=== PATIENT | male | born 1980 | race Caucasian/White ===

== ENCOUNTER 2021-02-09 18:23 | Emergency (ER) | payer OTHER, SELFPAY ==
[2021-02-09 18:36] VITALS: BP 158/105; PULSE 98; RESP 18; TEMP 36.8; O2SAT 97; BMI 34.9
--- NOTE | 2021-02-09 18:54 | ECG_ITS ---
Test Date: 2021-02-09 Pat Name: Luis Guajardo Department: Room: Gender: Male Rn First Assistant: : 1980 Requested By: Ana Hernandez I Order Number: [id number] Concepción MD: Adalberto Teran M.D. Measurements Intervals Protivin Rate: 92 P: 52 LA: 149 QRS: 14 QRSD: 87 T: 38 QT: 335 QTc: 416 Interpretive Statements SINUS RHYTHM POSSIBLE LEFT ATRIAL ENLARGEMENT [-0.1mV P WAVE IN V1/V2] No previous ECG available for comparison Electronically Signed On 02-09-2021 19:11:37 CDT by Adalberto Teran M.D. [email or web address] [email or web address] memorial hospitalFioscleveland clinic akron generalAirbiquity/store/NU/[id number] f
--- NOTE | 2021-02-09 18:55 | ED_ITS ---
HPI - Neuro Symptoms/Deficit General: Chief Complaint: Neuro Symptoms/Deficit Stated Complaint: headache, numbness in left side of body Time Seen by Provider: 02/09/21 18:46 Source: patient Mode of arrival: ambulatory Limitations: no limitations History of Present Illness: HPI Narrative: This patient is a 40-year-old male with a history of hypertension who presents to the emergency department with left-sided headache. He has associated right upper extremity tingling and weakness. Symptoms started about 4:30 PM this afternoon. The weakness and headache gradually got worse and so he decided to come into the emergency department to be evaluated. He had similar symptoms 2 days ago and to a lesser extent yesterday. He does not have a history of migraines. He thinks he may have a little bit of weakness in the right lower extremity. No visual changes. He however has photosensitivity. Onset (ago): hour(s) (3) Last Observed Normal: 16:00 Timing confirmed by: other (friend) Location: right arm History of same: No Severity: moderate Quality: weak and tingling Relieving factors: none Exacerbating factors: none Context: sudden onset On Anticoagulants: No Associated symptoms: Reports headache(s), malaise and tingling; Deny chest pain, cough, diaphoresis, fevers/chills, anorexia, nausea, seizures, short of breath, syncope, vertigo, vomiting or weakness Review of Systems General: Reports: 10 or more systems reviewed and unremarkable except in HPI and below Const: Reports: malaise; Denies: diaphoresis Card: Denies: chest pain or syncope GI: Denies: nausea or vomiting Neuro: Reports: headache(s); Denies: vertigo NIH stroke score NIHSS: Level Of Consciousness - 1a: 0 Level Of Consciousness Questions - 1b: Both Correct Level Of Consciousness Commands - 1c: Both Correct Best Gaze - 2: Normal Visual Armstrong - 3: No Visual Loss Facial Palsy - 4: Normal Motor Arm Right - 5: No Drift Motor Arm Left - 5: No Drift Motor Leg Right - 6: No Drift Motor Leg Left - 6: No Drift Limb Ataxia - 7: Present In One Limb Sensory - 8: Mild To Moderate Loss Best Language - 9: No Aphasia Dysarthia - 10: Normal Extinction And Inattention - 11: 0 Score: Total Score: 2 Physical Exam Const: COMMON NORMALS: no acute distress, average body habitus, patient oriented x3, no limitations, healthy appearing, alert and well nourished HENMT: COMMON NORMALS: normocephalic, atraumatic and moist oral mucous membranes HEAD & SCALP: normocephalic and atraumatic Neck/C-Spine: COMMON NORMALS: no meningeal signs and no JVD Resp: COMMON NORMALS: normal respiratory effort, No retractions, No use of accessory muscles, clear to auscultation bilaterally and percussion normal AUSCULTATION: clear to auscultation bilaterally PERCUSSION: percussion normal Cardio: COMMON NORMALS: no JVD, regular rate, regular rhythm, S1 normal heart sound present, S2 normal heart sound present, No gallops present (Cardio), No clicks present (Cardio), No murmurs present (Cardio), No rub (Cardio) and Peripheral pulses 2+ throughout RATE: regular rate RHYTHM: regular rhythm HEART SOUNDS: S1 normal heart sound present and S2 normal heart sound present PERIPHERAL PULSES: Peripheral pulses 2+ throughout GI: COMMON NORMALS: Normal to inspection, nondistended, normoactive bowel sounds present, Soft to palpation, non-tender, No hepatosplenomegaly present, no masses and no bruits PALPATION: Yes Soft to palpation and Yes No hepatosplenomegaly present Extremity: COMMON NORMALS: normal to inspection, full ROM, capillary refill normal, no calf tenderness and no pedal edema Neuro: COMMON NORMALS: patient oriented x3 SENSORIUM/ORIENTATION: Yes alert MENINGEAL SIGNS: Yes no meningeal signs Skin: COMMON NORMALS: no rashes or lesions noted, no wounds, turgor normal, no jaundice, no petechiae and no mottling GENERAL SKIN EXAM: no rashes or lesions noted and turgor normal Course Consultations: Consultation #1: Discussed the patient with Dr. Morales, neurologist at [facility] in [place]. He did do a telemedicine visit with the patient and after evaluation with the patient and discussed with the patient risks and benefits of TPA discussed with the patient. Also discussed the possibility of this being a complex migraine. After discussion the patient elects to have TPA and be transferred to [place] for further evaluation and management. Time: 19:34 Vital Signs: Vital signs: Vital Signs Temperature 98.2 F 02/09/21 18:36 Pulse Rate 97 02/09/21 22:42 Respiratory Rate 16 02/09/21 22:42 Blood Pressure 138/83 02/09/21 22:42 Pulse Oximetry 93 02/09/21 22:42 MDM - Neuro Symptoms/Deficit MDM Narrative: Medical decision making narrative: This 40-year-old male with a history of hypertension presents to the emergency department with left-sided headache and right-sided upper extremity weakness and some right lower extremity weakness. 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 He was evaluated by the neurologist at [facility] in [place]. After discussion with the patient that he was given TPA and transferred to [facility] for further evaluation and management. Patient remained stable throughout his ED stay. Medical Records: Attestation: I reviewed the patient's medical records. Lab Data: Attestation: I reviewed the patient's lab results. Labs: Lab Results 02/09/21 02/09/21 02/09/21 Range/Units 18:56 19:04 19:04 WBC 14.7 H (4.0-10.0) 10^3/ uL RBC 5.12 (4.1-5.3) 10^6/u L Hgb 15.8 (11.7-16.6) g/dL Hct 46.4 (42.0-52.0) % MCV 90.6 (80-94) fL MCH 30.9 (28.0-34.0) pg MCHC 34.1 (30.0-36.0) g/dL RDW 12.2 (12.1-15.1) % Plt Count 251 (130-400) 10^3/c mm MPV 10.5 H (7.4-10.4) fL Neut % (Auto) 68.1 % Lymph % (Auto) 21.1 % [place] % (Auto) 8.5 % Eos % (Auto) 1.4 % Baso % (Auto) 0.4 % Neut # (Auto) 9.99 H (1.8-7.7) 10^3/u L Lymph # (Auto) 3.1 (0.8-4.8) 10^3/u L [place] # (Auto) 1.2 H (0.2-0.9) 10^3/u L Eos # (Auto) 0.2 (0.0-0.8) 10^3/u L Baso # (Auto) 0.1 (0.0-0.1) 10^3/u L Nucleated RBC % (a uto) 0 % Nucleated RBCs # 0.0 /100WBC PT 13.60 (12.1-14.9) SECO NDS INR 1.01 (0.8-1.2) APTT 30.3 (23.9-36.7) SECO NDS Sodium (136-145) mmol/L Potassium (3.5-5.1) mmol/L Chloride (98-107) mmol/L Carbon Dioxide (22-29) mmol/L Anion Gap (5-19) BUN (6-20) mg/dL Creatinine (0.7-1.2) mg/dL GFR Calculation (90-130) mL/min Glucose (65-115) mg/dL POC Glucose 103 (70-110) mg/dL Calculated Osmolal ity (285-295) mOsm/k g Calcium (8.5-10.5) mg/dL Total Bilirubin (0.15-1.2) mg/dL AST (0-40) U/L ALT (0-41) U/L Alkaline Phosphata se (40-130) IU/L Total Protein (6.6-8.7) g/dL Albumin (3.5-5.2) g/dL Globulin (1.3-4.6) g/dL Urine Color (Yellow) Urine Appearance (CLEAR) Urine pH (5-7) Ur Specific Gravit y (1.005-1.030) Urine Protein (Negative) Urine Glucose (UA) (Normal) Urine Ketones (Negative) Urine Blood (Negative) Urine Nitrate (Negative) Urine Bilirubin (Negative) Urine Urobilinogen (Negative) mg/dL Ur Leukocyte Lisa ase (Negative) Urine Opiates Scre en (Negative) ng/mL Ur Barbiturates Sc reen (Negative) ng/mL Ur Phencyclidine S crn (Negative) ng/mL Ur Amphetamines Sc reen (Negative) ng/mL U Benzodiazepines Scrn (Negative) ng/mL Urine Cocaine Scre en (Negative) ng/mL U Marijuana (THC) Screen (Negative) ng/mL 02/09/21 02/09/21 02/09/21 Range/Units 19:04 21:00 21:00 WBC (4.0-10.0) 10^3/ uL RBC (4.1-5.3) 10^6/u L Hgb (11.7-16.6) g/dL Hct (42.0-52.0) % MCV (80-94) fL MCH (28.0-34.0) pg MCHC (30.0-36.0) g/dL RDW (12.1-15.1) % Plt Count (130-400) 10^3/c mm MPV (7.4-10.4) fL Neut % (Auto) % Lymph % (Auto) % [place] % (Auto) % Eos % (Auto) % Baso % (Auto) % Neut # (Auto) (1.8-7.7) 10^3/u L Lymph # (Auto) (0.8-4.8) 10^3/u L [place] # (Auto) (0.2-0.9) 10^3/u L Eos # (Auto) (0.0-0.8) 10^3/u L Baso # (Auto) (0.0-0.1) 10^3/u L Nucleated RBC % (a uto) % Nucleated RBCs # /100WBC PT (12.1-14.9) SECO NDS INR (0.8-1.2) APTT (23.9-36.7) SECO NDS Sodium 136 (136-145) mmol/L Potassium 3.9 (3.5-5.1) mmol/L Chloride 100 (98-107) mmol/L Carbon Dioxide 28 (22-29) mmol/L Anion Gap 11.9 (5-19) BUN 17 (6-20) mg/dL Creatinine 1.0 (0.7-1.2) mg/dL GFR Calculation 81.9 L (90-130) mL/min Glucose 110 (65-115) mg/dL POC Glucose (70-110) mg/dL Calculated Osmolal ity 284 L (285-295) mOsm/k g Calcium 8.8 (8.5-10.5) mg/dL Total Bilirubin 0.6 (0.15-1.2) mg/dL AST 23 (0-40) U/L ALT 45 H (0-41) U/L Alkaline Phosphata se 87 (40-130) IU/L Total Protein 7.1 (6.6-8.7) g/dL Albumin 4.4 (3.5-5.2) g/dL Globulin 2.7 (1.3-4.6) g/dL Urine Color Straw (Yellow) Urine Appearance Clear (CLEAR) Urine pH 7 (5-7) Ur Specific Gravit y 1.005 (1.005-1.030) Urine Protein Neg (Negative) Urine Glucose (UA) Norm (Normal) Urine Ketones Negative (Negative) Urine Blood Neg (Negative) Urine Nitrate Negative (Negative) Urine Bilirubin Neg (Negative) Urine Urobilinogen Norm (Negative) mg/dL Ur Leukocyte Lisa ase Negative (Negative) Urine Opiates Scre en Negative (Negative) ng/mL Ur Barbiturates Sc reen Negative (Negative) ng/mL Ur Phencyclidine S crn Negative (Negative) ng/mL Ur Amphetamines Sc reen Negative (Negative) ng/mL U Benzodiazepines Scrn Negative (Negative) ng/mL Urine Cocaine Scre en Negative (Negative) ng/mL U Marijuana (THC) Screen Negative (Negative) ng/mL Imaging Data^: CT Head: Attestation: I personally reviewed and interpreted this imaging study as carlito antonio: Radiologist's impression: [address] [id number] Scan ReportSigned Patient: Norah Guajardo #: [id number]: 1980Acct#:[id number]/Sex: 40 / MADM Date: 02/09/21Loc: ERRoom/Bed:Attending Dr: Ordering Provider/Ordering MD: Ana Hernandez MD, [facility] [place] Date of Service: 02/09/21 Procedure(s): CT head wo con* [id number] Accession Number(s): [id number] Report Number: [id number] PROCEDURE INFORMATION: Exam: CT Head Without Contrast Exam date and time: 02/09/2021 6:54 PM Age: 40 years old Clinical indication: Pain; Headache; Additional info: Symptoms of acute stroke TECHNIQUE: Imaging protocol: Computed tomography of the head without contrast. Radiation optimization: All CT scans at this facility use at least one of these dose optimization techniques: automated exposure control; mA and/or kV adjustment per patient size (includes targeted exams where dose is matched to clinical indication); or iterative reconstruction. Other technique: STROKE PROTOCOL was implemented. COMPARISON: No relevant prior studies available. RADIATION DOSE METRICS: Total DLP (mGy-cm): 931.92 FINDINGS: Brain: Normal. No hemorrhage or evidence of acute infarction is seen. No mass effect. Cerebral ventricles: No ventriculomegaly. Paranasal sinuses: Visualized sinuses are unremarkable. No fluid levels. Mastoid air cells: Visualized mastoid air cells are well aerated. Bones/joints: Unremarkable. No acute fracture. Soft tissues: Unremarkable. CT/CT head wo con* [id number] IMPRESSION: No acute intracranial abnormality. ASSESSMENT: ASPECTS ([place] Stroke Program Early CT Score) is 10. Radiation Dose CTDIVOL = (mGy): DLP = 931.92 (mGy-cm) Dictated By:Shai Dhillon MDSigned By:Shai Dhillon MDSigned Date/Time:02/09/214DD/ [address]: Attestation: I personally reviewed and interpreted this imaging study as follows: Radiologist's impression: [address] [id number] Scan ReportSigned Patient: Norah Guajardo #: [id number]: 1980Acct#:[id number]/Sex: 40 / MADM Date: 02/09/21Loc: ERRoom/Bed:Attending Dr: Ordering Provider/Ordering MD: Ana Hernandez MD, [facility] [place] Date of Service: 02/09/21 Procedure(s): CT angio headneck* [id number] Accession Number(s): [id number] Report Number: [id number] PROCEDURE INFORMATION: Exam: CT Angiography Head With Contrast, Arteriography Exam date and time: 02/09/2021 6:54 PM Age: 40 years old Clinical indication: Patient HX: Numbness left side of body; Additional info: Neuro symptoms. TECHNIQUE: Imaging protocol: Computed tomography angiography of the head with contrast. Exam focused on the arteries. 3D rendering (Not supervised by radiologist): MIP and/or 3D reconstructed images were created by the technologist. Radiation optimization: All CT scans at this facility use at least one of these dose optimization techniques: automated exposure control; mA and/or kV adjustment per patient size (includes targeted exams where dose is matched to clinical indication); or iterative reconstruction. Contrast material: OMNI 350; Contrast volume: 95 ml; Contrast route: INTRAVENOUS (IV); COMPARISON: No relevant prior studies available. RADIATION DOSE METRICS: Total DLP (mGy-cm): 2603.11 FINDINGS: ANTERIOR CIRCULATION: Right internal carotid artery: Unremarkable. Intracranial segment is patent with no significant stenosis. No aneurysm. Right middle cerebral artery: Unremarkable. No occlusion or significant stenosis. No aneurysm. Right anterior cerebral artery: Unremarkable. No occlusion or significant stenosis. No aneurysm. Left internal carotid artery: Unremarkable. Intracranial segment is patent with no significant stenosis. No aneurysm. Left middle cerebral artery: Unremarkable. No occlusion or significant stenosis. No aneurysm. Left anterior cerebral artery: Unremarkable. No occlusion or significant stenosis. No aneurysm. POSTERIOR CIRCULATION: Right vertebral artery: Unremarkable. No occlusion or significant stenosis. No aneurysm. Left vertebral artery: Unremarkable. No occlusion or significant stenosis. No aneurysm. Basilar artery: Unremarkable. No occlusion or significant stenosis. No aneurysm. Right posterior cerebral artery: Unremarkable. No occlusion or significant stenosis. No aneurysm. Left posterior cerebral artery: Unremarkable. No occlusion or significant stenosis. No aneurysm. IMPRESSION: Patent intracranial arteries. PROCEDURE INFORMATION: Exam: CT Angiography Neck With Contrast Exam date and time: 02/09/2021 6:54 PM Age: 40 years old Clinical indication: Patient HX: Numbness left side of body; Additional info: Neuro symptoms. TECHNIQUE: Imaging protocol: Computed tomography angiography of the neck with contrast. 3D rendering (Not supervised by radiologist): MIP and/or 3D reconstructed images were created by the technologist. Radiation optimization: All CT scans at this facility use at least one of these dose optimization techniques: automated exposure control; mA and/or kV adjustment per patient size (includes targeted exams where dose is matched to clinical indication); or iterative reconstruction. Contrast material: OMNI 350; Contrast volume: 95 ml; Contrast route: INTRAVENOUS (IV); COMPARISON: No relevant prior studies available. RADIATION DOSE METRICS: Total DLP (mGy-cm): 2603.11 FINDINGS: Right common carotid artery: No stenosis. No dissection or occlusion. Right internal carotid artery: No stenosis of the extracranial segment. No dissection or occlusion. Right external carotid artery: No occlusion or stenosis of the origin. Left common carotid artery: No stenosis. No dissection or occlusion. Left internal carotid artery: No stenosis of the extracranial segment. No dissection or occlusion. Left external carotid artery: No occlusion or stenosis of the origin. Right vertebral artery: No stenosis. No dissection or occlusion. Left vertebral artery: No stenosis. No dissection or occlusion. Soft tissues: Normal. No significant soft tissue swelling. Bones/joints: No acute fracture. CT/CT angio headneck* [id number] IMPRESSION: Patent neck carotid and vertebral arteries. REFERENCES: NASCET CRITERIA. The degree of internal carotid artery stenosis is based on NASCET criteria. Normal is no stenosis. Mild is less than 50% stenosis. Moderate is 50-69% stenosis. Severe is 70% to 99% stenosis. Total occlusion is no detectable patent lumen. Radiation Dose CTDIVOL = (mGy): DLP = 2603.11~2603.11 (mGy-cm) Dictated By:Shai Dhillon MDSigned By:Shai Dhillon MDSigned Date/Time:02/09/211927DD/ 25 EKG Data^: EKG 1: Attestation: I personally reviewed and interpreted this EKG as follows: EKG interpretation date: 02/09/21 EKG interpretation time: 18:59 Prior EKG tracings: not available for review Interpretation: Sinus rhythm. Heart rate 92 bpm. Normal axis. No ST changes. Critical Care Time Critical Care Time: Critical Care Time: Yes Total Critical Care Time: 60 Attestation: This case had a high probability of a clinically significant, sudden, or life threatening deterioration of this patient's condition which required my full and direct attention, intervention and personal management. Discharge Plan Discharge Patient Disposition: Xfer Short-Term Hosp Clinical Impression: Cerebrovascular accident Qualifiers: CVA mechanism: unspecified Qualified Code(s): I63.9 - Cerebral infarction, unspecified Discharge Orders: Transfer Out of Facility (Order); Ordered 02/09/21 Ordered By: Ana Hernandez Coding Level of Care Code ED Front Worker for Chg Fwd
[2021-02-09 19:01] LABS: Glucose Point of Care 103 mg/dL (70-110)
[2021-02-09 19:11] LABS: Basophils # 0.1 10^3/uL (0.0-0.1); Basophils % 0.4 %; Eosinophils # 0.2 10^3/uL (0.0-0.8); Eosinophils % 1.4 %; Hematocrit 46.4 % (42.0-52.0); Hemoglobin 15.8 g/dL (11.7-16.6); Lymphocytes # 3.1 10^3/uL (0.8-4.8); Lymphocytes % 21.1 %; Mean Corpuscular HGB Conc 34.1 g/dL (30.0-36.0); Mean Corpuscular Hemoglobin 30.9 pg (28.0-34.0); Mean Corpuscular Volume 90.6 fL (80-94); Mean Platelet Volume 10.5 fL (7.4-10.4); Monocytes # 1.2 10^3/uL (0.2-0.9); Monocytes % 8.5 %; Neutrophils # 9.99 10^3/uL (1.8-7.7); Neutrophils % 68.1 %; Nucleated Red Blood Cells % 0 %; Platelet Count 251 10^3/cmm (130-400); Red Blood Count 5.12 10^6/uL (4.1-5.3); Red Cell Distribution Width 12.2 % (12.1-15.1); White Blood Count 14.7 10^3/uL (4.0-10.0)
[2021-02-09] MEDS: iohexol 350 mg/mL 100 mL Btl IV (19:13)
[2021-02-09 19:23] LABS: INR 1.01 (0.8-1.2)
[2021-02-09 19:24] LABS: Partial Thromboplastin Time 30.3 SECONDS (23.9-36.7)
[2021-02-09 19:26] LABS: Alanine Aminotransferase 45 U/L (0-41); Albumin Level 4.4 g/dL (3.5-5.2); Alkaline Phosphatase 87 IU/L (40-130); Anion Gap 11.9 (5-19); Aspartate Amino Transferase 23 U/L (0-40); Blood Urea Nitrogen 17 mg/dL (6-20); Calcium 8.8 mg/dL (8.5-10.5); Carbon Dioxide 28 mmol/L (22-29); Chloride 100 mmol/L (98-107); Globulin 2.7 g/dL (1.3-4.6); Glomerular Filtration Rate 81.9 mL/min (90-130); Glucose 110 mg/dL (65-115); Osmolality Calculated 284 mOsm/kg (285-295); Potassium 3.9 mmol/L (3.5-5.1); Sodium 136 mmol/L (136-145); Total Bilirubin 0.6 mg/dL (0.15-1.2); Total Protein 7.1 g/dL (6.6-8.7)
[2021-02-09 19:37] VITALS: BP 163/117; PULSE 107; RESP 27; O2SAT 98
[2021-02-09] MEDS: labetalol 5 mg/mL SDV 20mL 10 MG IVP (20:19)
[2021-02-09 20:23] VITALS: BP 134/92; PULSE 102; RESP 20; O2SAT 96
[2021-02-09 20:58] VITALS: BP 124/91; PULSE 96; RESP 18; O2SAT 95
[2021-02-09 21:09] LABS: Add Urine Microscopic? NO; Charge for UA Resulting for Rev
[2021-02-09 21:12] LABS: Bilirubin Urine Neg (Negative); Blood Urine Neg (Negative); Glucose Urine UA Norm (Normal); Ketones Urine Negative (Negative); Leukocyte Esterase Urine Negative (Negative); Nitrate Urine Negative (Negative); Protein Urine Neg (Negative); Specific Gravity, Urine 1.005 (1.005-1.030); Urine Appearance Clear (CLEAR); Urine Color Straw (Yellow); Urobilinogen Urine Norm (Negative); pH Urine 7 (5-7)
[2021-02-09 21:21] LABS: Amphetamines Screen Urine Negative (Negative); Barbiturates Screen Urine Negative (Negative); Benzodiazepines Screen Urine Negative (Negative); Cocaine Screen Urine Negative (Negative); Opiate Screen Urine Negative (Negative); PCP Screen Urine Negative (Negative); THC Screen Urine Negative (Negative)
[2021-02-09 21:39] VITALS: BP 123/90; PULSE 91; RESP 15; O2SAT 95
--- NOTE | 2021-02-09 22:05 | PC.NURSE ---
report called to Sona Leal RN at [facility] at [id number]
[2021-02-09] MEDS: dexamethasone 10 mg/mL INJ IVP (22:20)
[2021-02-09] MEDS: magnesium sulfate premix 2 GM/50 ML PIGGYBACK IV (22:21)
[2021-02-09] MEDS: sodium chloride 0.9% 250 ML 76 ML IV (22:36)
[2021-02-09 22:42] VITALS: BP 138/83; PULSE 97; RESP 16; O2SAT 93
== END 2021-02-09 22:42 | disposition short-term general hospital (02) ==
PROVIDERS: Emergency Provider Family Medicine
DX: I63.9 Cerebral infarction, unspecified (principal)
CPT/HCPCS: 36416; 70450; 70496; 70498; 80053; 80306; 81003; 82962; 85025; 85610; 85730; 93005; 96361; 96365; 96375; 99285; 99291; J1100; J2997; J3475; J3490; J7050; Q9967

== ENCOUNTER → 2023-06-23 11:00 | Outpatient (BNVA) | payer OTHER, SELFPAY | PROVIDERS: Visit Provider Podiatrist Foot & Ankle Surgery | DX: M72.2 Plantar fascial fibromatosis; M21.622 Bunionette of left foot; M71.372 Other bursal cyst, left ankle and foot | CPT/HCPCS: 73630; 99213 ==

== ENCOUNTER 2023-07-20 20:00 | Outpatient (CLI) | payer OTHER, SELFPAY | END 2023-07-20 20:01 | disposition home or self-care (01) | LOC: SLEEP 07-21 05:09 | PROVIDERS: Visit Provider Nurse Practitioner | DX: G47.33 Obstructive sleep apnea (adult) (pediatric) (principal) | CPT/HCPCS: 95810 ==

== ENCOUNTER → 2023-09-22 10:18 | Outpatient (BNVA) | payer OTHER, SELFPAY | PROVIDERS: Visit Provider Podiatrist Foot & Ankle Surgery | DX: M21.622 Bunionette of left foot (principal); M71.372 Other bursal cyst, left ankle and foot; M72.2 Plantar fascial fibromatosis | CPT/HCPCS: 99213 ==